=== PATIENT | female | born 1985 | race Caucasian/White ===

== ENCOUNTER 2021-07-13 03:52 | Day surgery (SDC) | payer OTHER, SELFPAY ==
[2021-07-10 10:32] VITALS: BMI 25.0
[2021-07-13] VITALS (8 sets, daily range): BP systolic 87–116; BP diastolic 54–77; PULSE 51–102; RESP 14–18; TEMP 36.4–37.2; O2SAT 97–100; BMI 25.8
--- NOTE | 2021-07-13 09:32 | P.PNAN_ITS ---
Anes - Initial Pre Proc Eval Procedure: Operation Date: 07/13/21 14:00 Proposed Procedures p Laparoscopic Bilateral Salpingectomy - Gus Bullock MD Date/Time: 07/13/21 09:32 Surgeon: Gus Bullock MD Pre Op Diagnosis: desires sterilization Patient Data Age: 35 Gender: F Height: 1.7 m Weight: 72.57 kg Allergies Allergy/AdvReac Type Severity Reaction Status Date / Time tramadol Allergy Unknown Rash Verified 07/13/21 12:20 Home Medications Medication Instructions Recorded Confirmed Type No Home Medications 07/10/21 07/10/21 History Patient hx anesthesia problems: none Family hx anesthesia problems: none Results Review: All pre-operative results and documents have been reviewed as part of the pre-operative evaluation. PMFSH Past Medical History Medical History Anemia affecting Candidiasis, vagina Cannabis use disorder, mild, abuse Carrier of group B Streptococcus History of trichomonal vaginitis Hyperemesis Low serum progesterone Methamphetamine abuse Smoker Surgical History Surgical History (Updated 07/13/21 @ 12:01 by Gus Bullock MD) Delivery by section 07/06/20091406 lbs.[facility]2017139.16 [facility].15 [facility]/20[facility]2018139.16 lbs.9 [facility] Family History Other Family history of mental disorder Social History Social History (Updated 07/13/21 @ 12:01 by Gus Bullock MD) Smoking packs per day: 0.5 Smoking cigarettes per day: 10.0 Years smoked: 15 Smoking pack-years: 7.50 Smoking status: Current every day smoker Tobacco type: cigarettes Second hand tobacco smoke exposure: Yes Smoking end date: 09/08/07 Alcohol intake: never Substance use: current Substance use type: methamphetamine Last use: 07/09/21 Living arrangements: with friend(s) Occupation/Education: unemployed Gender identity (if verbalized by the patient): Female Sexual Orientation (if Verbalized by the Patient): Straight or Heterosexual Spiritual care concerns: No Agree to blood products: Yes Anes - Eval Final PreProcedure Day of Procedure 07/13/21 09:32 Patient weight: normal Heart: regular rate and rhythm Lungs: clear to auscultation and normal air movement Airway: Mallampati scale class II Neurological: alert and oriented Last oral intake: >/= 8 hours ASA classification: III Emergent: no Anesthetic plan: proceed Anesthesia type and monitoring: general ETT Results Review: All pre-operative results and documents have been reviewed as part of the pre-operative evaluation. Informed Consent: The patient's anesthetic plan and its attendant risks and benefits were discussed with the patient/family/POA. Questions were solicited and answers provided to the satisfaction of the patient/family/POA.
--- NOTE | 2021-07-13 11:44 | PM.HPGS ---
History of Present Illness History of Present Illness Consent: Risks, benefits, and alternatives have been discussed and questions answered. Patient agrees to proceed with procedure. Chief complaint: desires sterilization Narrative: Lida Benavidez is a 35 year old CF here for laparoscopic bilateral tubal sterilization with bilateral salpingectomy [facility] substance abuse and C/S deliveries. Multiparous and desires bilateral tubal sterilization. IDPA tubal papers signed. Risk of hemorrhage, infection, injury to ureter, bladder, uterus, and bowel, ectopic , UTI, DVT, pneumonia. She understands this procedure is permanent, irreversible, and she does not desire future . She also understands there is a risk of ectopic and if she does become in the future, she should seek emergency medical care. She understands this procedure does not protect against STIs and should continue to use condoms. IDPA tubal papers signed on 04/11/2021. Informed consent obtained. Review of Systems Review of Systems: All systems reviewed & are unremarkable except as noted in HPI and below Constitutional: Constitutional: Reports no additional constitutional complaints Eyes: Eyes: Reports no additional eye complaints ENT: Reports system reviewed and no additional complaints, except as documented Cardiovascular: Cardiovascular: Reports no additional cardiovascular complaints Respiratory: Respiratory: Reports no additional respiratory complaints Gastrointestinal: Gastrointestinal: Reports no additional gastrointestinal complaints Genitourinary: Genitourinary: Reports no additional female genitourinary complaints Musculoskeletal: Musculoskeletal: Reports no additional musculoskeletal complaints Integumentary/Breasts: Skin/Breast: Reports system reviewed and no additional complaints, except as docu Neurologic: Reports system reviewed and no additional complaints, except as documented Psychiatric: Psychiatric: Reports no additional psychiatric complaints Endocrine: Endocrine: Reports no additional endocrine complaints Hematologic/Lymphatic: Hematologic/Lymphatic: Reports no additional hematologic/lymphatic complaints Allergic/Immunologic: Allergic/Immunologic: Reports no additional allergic/immunologic complaints PMFSH Past Medical History Medical History Anemia affecting Candidiasis, vagina Cannabis use disorder, mild, abuse Carrier of group B Streptococcus History of trichomonal vaginitis Hyperemesis Low serum progesterone Methamphetamine abuse Smoker Surgical History Surgical History (Updated 07/13/21 @ 12:01 by Gus Bullock MD) Delivery [facility]20091406 [facility]2017139.16 lbs.15 oz.FRepeat [facility]Full [facility] 11/20/2018139.16 lbs.9 oz.FRepeat [facility]areanFull [facility] Family History Family History Other Family history of mental disorder Social History Social History (Updated 07/13/21 @ 12:01 by Gus Bullock MD) Smoking packs per day: 0.5 Smoking cigarettes per day: 10.0 Years smoked: 15 Smoking pack-years: 7.50 Smoking status: Current every day smoker Tobacco type: cigarettes Second hand tobacco smoke exposure: Yes Smoking end date: 09/08/07 Alcohol intake: never Substance use: current Substance use type: methamphetamine Last use: 07/09/21 Living arrangements: with friend(s) Occupation/Education: unemployed Gender identity (if verbalized by the patient): Female Sexual Orientation (if Verbalized by the Patient): Straight or Heterosexual Spiritual care concerns: No Agree to blood products: Yes Meds Home Medications and Allergie
--- NOTE | 2021-07-13 11:54 | WPDHPUPDATE1 ---
History and Physical Update Update Date/Time: 07/13/21 11:54 History and Physical has been reviewed, including an updated exam of the patient. There are NO changes in the patient's condition. Risks, benefits, and alternatives have been discussed and questions answered. Patient agrees to proceed with procedure. Lida Benavidez is a 35 year old CF here for laparoscopic bilateral tubal sterilization with bilateral salpingectomy [facility] substance abuse and C/S deliveries. Multiparous and desires bilateral tubal sterilization. SergeMD tubal papers signed. Risk of hemorrhage, infection, injury to ureter, bladder, uterus, and bowel, ectopic , UTI, DVT, pneumonia. She understands this procedure is permanent, irreversible, and she does not desire future . She also understands there is a risk of ectopic and if she does become in the future, she should seek emergency medical care. She understands this procedure does not protect against STIs and should continue to use condoms. SergeMD tubal papers signed on 04/11/2021. Informed consent obtained.
[2021-07-13] MEDS: LACTATED RINGERS 1,000 ML 30 ML IV CONT (12:30)
--- NOTE | 2021-07-13 12:36 | ECG_ITS ---
Measurements Intervals Rowley Rate: 67 P: 5 NE: 140 QRS: 68 QRSD: 96 T: 62 QT: 379 QTc: 403 Interpretive Statements SINUS RHYTHM INCOMPLETE RIGHT BUNDLE BRANCH BLOCK BASELINE ARTIFACT- I, II, III, AVR, AVL, AVF BORDERLINE ECG Electronically Signed On 07-13-2021 12:57:00 CDT by Ernesto Rowley D.O.
[2021-07-13] MEDS: KETOROLAC 15 MG/ML VIAL (*BKC) IV PUSH (12:49)
[2021-07-13] MEDS: ACETAMINOPHEN 500 MG TABLET 1000 MG PO (12:49)
[2021-07-13] MEDS: ceFAZolin SODIUM 1 GM VIAL 2 GM IV PUSH (14:40)
[2021-07-13] MEDS: BUPIVACAINE HCL 0.25% PF 30 ML VIAL INFILTRATE (15:01)
--- NOTE | 2021-07-13 15:36 | W.PM.PROC2 ---
Procedure Note - Detailed Date of Procedure 07/13/21 Pre-op Diagnosis desires bilateral tubal sterilization previous x3 Post-op Diagnosis same (desires bilateral tubal sterilization, previous x3, omental adhesions) Procedure Performed laparoscopic bilateral tubal sterilization with bilateral salpingectomy. Omental adhesiolysis Surgeon Gus Bullock MD Acetylene Torch Solderer senior sales assistant x2 Anesthesia general Indications Desires bilateral tubal sterilization Findings omental adhesions to scar, anterior abdominal wall, all the way to umbilicus uterus, tubes, ovaries normal, hydatid cyst of left fallopian tube pedicles hemostatic at the end of case counts correct complications none VTE: SCDs Abx: Ancef 2g Extubated in the operating room to recovery room in stable condition Description of Procedure informed consent obtained the IDP a tubal consent form was verified and in the chart. The patient was taken to the operating room and she was placed in the supine position she was given IV general anesthesia she was then oral tracheal E intubated without difficulty. She was placed in the semilithotomy position in Perry stirrups and then prepped and then draped in the usual sterile fashion and a Chaves catheter was inserted. A time-out was performed. A Hulka tenaculum was placed to the uterine cervix following this infraumbilical in infiltration with course of Marcaine plain 10 cc was followed by an infraumbilical incision. A 5 mm trocar and cannula were inserted through the infraumbilical incision under direct vision. The abdomen was distended with CO2 after 3.5 L an adequate distension lateral trocars 5 mm were placed in the right left lower quadrant under direct vision after infiltration of the skin with and fascia with 10 cc of cortisone Marcaine plain incisions were made in the cannulas were secured to the abdominal wall. Inspection of the abdominal cavity revealed extensive omental adhesions to the anterior abdominal wall from the previous scar to the umbilicus and after extensive desiccation and roll technique the omental adhesions were successfully removed from the anterior abdominal wall for direct visualization of the pelvic organs. The right flap fallopian tubes were normal the anterior and posterior cul-de-sac were clean other was hydatid cyst of the left ovary and tube which were expelled. Following this the endo coagulation of the fallopian tubes was then performed in a bilateral sequential fashion the proximal tubes were desiccated with Antonietta clamps the mesial salpinx was endo coagulated with the arcuate vessels endo coagulated as well as the fimbriae ovarian vessels bilaterally endo Padmini were then placed with heat and then excising the fallopian tubes bilaterally these were then removed through a 10 minutes mm cannula which was replaced into the right lower quadrant the fallopian tubes were sent off for pathologic confirmation the ends of the pedicles were hemostatic with all electrocautery and the procedure was then terminated the gas was removed the abdominal cavity the instruments removed the cannulas were removed and then the incisions were suture approximated with 3-0 Monocryl subcuticular followed by Dermabond to the skin. The patient was extubated in the operating taken recovery room stable condition due to previous substance abuse patient desired not in all capital stat have narcotics and will use anti-inflammatory agents ibuprofen 800 mg q.6 hours was given to her pharmacy patient tolerated the procedure well and is in the recovery room Estimated Blood Loss 10 IV Fluids 1,000 Urine Output 150 Drains No Packing No Pathology yes (right and left fallopian tube) Complications None Condition stable Disposition same day
[2021-07-13] MEDS: fentaNYL CITRATE INJ (*CRX) 100 MCG/2 ML VIAL 25 MCG IV PUSH ×2 (16:10→16:22)
--- NOTE | 2021-07-13 16:28 | SUR.PHASEI ---
1630 - pt slleping. wOnly after awakening pt does she c/o pain at 9-7. Otherwise falls back to sleep.
[2021-07-13] MEDS: oxyCODONE HCL (*CRX) 5 MG TAB IR PO (17:03)
--- NOTE | 2021-07-13 18:43 | SUR.PHASEII ---
Addendum entered by Jo Merrill RN 07/13/21 18:44: Actually it was tylenol w/ codeine Original Note: RN called Dr. Bullock and told him patient changed her mind and wanted something stronger for pain at home. He electronically submitted an order for Percocet from home.
== END 2021-07-13 17:55 | disposition home or self-care (01) ==
PROVIDERS: Visit Provider Obstetrics & Gynecology
PROC: (CPT 49320; principal; 2021-07-13 14:00)
DX: Z30.2 Encounter for sterilization (principal); N73.6 Female pelvic peritoneal adhesions (postinfective); F15.10 Other stimulant abuse, uncomplicated; F17.210 Nicotine dependence, cigarettes, uncomplicated
CPT/HCPCS: 58661; 88302; 93005; A9270; J0330; J0690; J1100; J1885; J2250; J2405; J2704; J2710; J3010; J7030; J7120